=== PATIENT | male | born 1965 | race Two or more races ===

== ENCOUNTER 2025-01-25 14:58 | Inpatient (IN) | payer OTHER ==
[~2025-01-25] VITALS: Ht 177.8 cm; Wt 132.0 kg
--- NOTE | 2025-01-25 15:26 | ECG ---
[facility] Test Date: 2025-01-25 Test Time: 15:01:58 Pat Name: CATIE CAMPOS Department: Room: Gender: M Equine Intern: PAULETTE : 1965 Requested By: ANJEL FIELDS Order Number: [id number] Reading MD: Jesús Parada Measurements Intervals [place] Rate: 91 P: 57 [place]: 182 QRS: 136 QRSD: 101 T: 34 QT: 366 QTc: 451 Interpretive Statements Sinus rhythm Left posterior fascicular block Electronically Signed On 01-25-2025 16:11:42 PDT by Jesús Parada Please click the below link to view image of tracing.
--- NOTE | 2025-01-25 15:27 | ED.PDOC ---
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 Pain is localized at substernal area, radiating to the back, pressure-like, constant, 10/10 in intensity with no clear exacerbating or relieving factor. He went to [facility], but due to chest pain EMS was called and brought to the hospital. In growth the patient was given nitroglycerin and loading dose of aspirin which did not help with the pain. He also reports of headache, nausea, and lethargy. He denies fever, shortness of breaths, or any recent chest trauma. Chief Complaint: Chest Pain Time Seen by MD: 15:00 Allergies: Coded Allergies: NO KNOWN ALLERGIES (Unverified , 01/25/25) Mode of Arrival: EMS Physical Exam General Appearance: No Apparent Distress, Normal HEENT: Normal ENT Inspection, Pharynx Normal, TMs Normal Neck: Full Range of Motion, Non-Tender, Normal, Normal Inspection Respiratory: Chest Non-Tender, Lungs Clear, No Accessory Muscle Use, No Respiratory Distress, Normal Breath Sounds Cardiovascular: No Edema, No JVD, No Murmur, No Gallop, Normal Peripheral Pulses, Regular Rate/Rhythm Breast Exam: Deferred Gastrointestinal: No Organomegaly, Non Tender, No Pulsatile Mass, Normal Bowel Sounds, Soft Genitalia: Deferred Pelvic: Deferred Rectal: Deferred Extremities: No calf tenderness, Normal capillary refill, Normal inspection, Normal range of motion, Non-tender, No pedal edema Musculoskeletal : Apperance: Normal Neurologic: Alert, marine plumber II-XII nml as Tested, No Motor Deficits, Normal Affect, Normal Mood, No Sensory Deficits Cerebellar Function: Normal Reflexes: Normal Skin: Dry, Normal Color, Warm Lymphatic: No Adenopathy Was a procedure done? Was a procedure done?: No CP Differential Dx Differential Diagnosis: Heart Failure Differential Diagnosis: CHF Differential Diagnosis: Angina, Chest Wall Pain, Cholelithiasis, Costochondritis, Esophageal reflux/spasm, Gastritis X-Ray, Labs, Meds, VS Vital Signs Date Time Temp Pulse Resp B/P (MAP) Pulse Ox O2 Delivery O2 Flow Rate FiO2 01/25/25 16:13 89 16 101/72 01/25/25 16:00 89 16 101/72 (82) 96 01/25/25 15:28 91 01/25/25 15:09 98.2 95 18 111/80 95 98.2 Lab Test 01/25/25 16:15 01/25/25 14:59 Range/Units Troponin I High Sensitivity 3 L < 3 L </=54 ng/L White Blood Count 7.8 4.4-10.8 10^3/uL Red Blood Count 5.26 4.5-5.90 10^6/uL Hemoglobin 16.0 13.5-17.5 g/dL Hematocrit 46.8 41.0-53.0 % Mean Corpuscular Volume 89.1 80.0-100.0 fL Mean Corpuscular Hemoglobin 30.5 28.0-32.0 pg Mean Corpuscular Hemoglobin Concent 34.2 32.0-36.0 g/dL Red Cell Distribution Width 14.8 H 11.8-14.3 % Platelet Count 231 140-450 10^3/uL Mean Platelet Volume 8.1 6.9-10.8 fL Neutrophils (%) (Auto) 45.6 37.0-80.0 % Lymphocytes (%) (Auto) 37.0 10.0-50.0 % Monocytes (%) (Auto) 13.0 H 0.0-12.0 % Eosinophils (%) (Auto) 3.5 0.0-7.0 % Basophils (%) (Auto) 0.9 0.0-2.0 % Neutrophils # (Auto) 3.6 1.6-8.6 10 ^3/uL Lymphocytes # (Auto) 2.9 0.4-5.4 10 ^3/uL Monocytes # (Auto) 1.0 0-1.3 10 ^3/uL Eosinophils # (Auto) 0.3 0-0.8 10 ^3/uL Basophils # (Auto) 0.1 0-0.2 10 ^3/uL Nucleated Red Blood Cells 0.1 % D-Dimer, Quantitative < 0.19 0.0-0.49 mg/L FEU Urine Color Pending Urine Clarity Pending Urine pH Pending Urine Specific Center Pending Urine Protein Pending Urine Ketones Pending Urine Blood Pending Urine Nitrite Pending Urine Bilirubin Pending Urine Urobilinogen Pending Urine Leukocyte Esterase Pending Urine RBC Pending Urine Microscopic WBC Pending Urine Squamous Epithelial Cells Pending Urine Bacteria Pending Urine Glucose Pending Sodium Level 136 136-145 mmol/L Potassium Level 3.9 3.5-5.1 mmol/L Chloride Level 99 98-107 mmol/L Carbon Dioxide Level 27 20-31 mmol/L Anion Gap 10 5-15 Blood Urea Nitrogen 16 9-23 mg/dL Creatinine 1.18 0.700-1.30 mg/dL Glomerular Filtration Rate Calc 72 >90 mL/min BUN/Creatinine Ratio 13.6 10.0-20.0 Serum Glucose 428 *H 74-106 mg/dL Calcium Level 9.1 8.7-10.4 mg/dL Magnesium Level 2.2 1.6-2.6 mg/dL Total Bilirubin 0.8 0.2-1.0 mg/dL Aspartate Amino Transferase (AST) 27 13-40 U/L Alanine Aminotransferase (ALT) 61 H 7-40 U/L Alkaline Phosphatase 149 H 46-116 U/L Total Protein 7.4 5.7-8.2 g/dL Albumin 4.3 3.2-4.8 g/dL Current Medications Medications (Trade) Dose Ordered Sig/Chrissy Route Start Time Stop Time Status Last Admin Morphine Sulfate 4 mg ONCE ONCE IV 01/25/25 15:15 01/25/25 15:26 DC 01/25/25 16:13 Atorvastatin Calcium (Lipitor) 80 mg ONCE ONCE PO 01/25/25 15:15 01/25/25 15:26 DC 01/25/25 16:12 Insulin Glargine (Lantus) 20 units ONCE ONCE SC 01/25/25 15:15 01/25/25 15:26 DC 01/25/25 16:11 Insulin Human Lispro (HumaLOG) 20 units ONCE ONCE SC 01/25/25 15:15 01/25/25 15:26 DC 01/25/25 16:10 Ondansetron HCl (Zofran) 4 mg ONCE ONCE IV 01/25/25 15:15 01/25/25 15:26 DC 01/25/25 16:12 Pantoprazole Sodium (Protonix) 40 mg ONCE ONCE IV 01/25/25 15:15 01/25/25 15:26 DC 01/25/25 16:13 Time of 1ST Reevaluation: 16:56 Reevaluation 1ST: Unchanged Patient Education/Counseling: Diagnosis, Treatment, Prognosis, Need For Follow Up Family Education/Counseling: No Family Present Comments Patient came to the hospital due to chest pain. Patient was vitally stable. Chest x-ray performed, showed no significant intrathoracic abnormalities. CBC and CMP checked, within normal Serial trop I was within normal. EKGs check, showed normal sinus rhythm with no significant ST or T-wave changes. The patient was given morphine, aspirin, atorvastatin and Zofran. on subsequent checkup, patient was still complaining of chest pain Patient will be admitted in hospital for inpatient care and for the workup and possible expert opinion. SEPSIS Sepsis Screen Date sepsis recognized/suspect: Jan 25, 2025 Time Sepsis recognized/suspect: 1457 Recent Procedure: No On Antibiotic Therapy: No Respiratory Rate >20: No Heart Rate >90: No Temp<36 C (96.8 F) or >38.3 C: No SBP <90 or MAP <65 mmHG: No New Acute Mental Status Change: No Is the patient on CPAP, BIPAP,: No Physician Orders Urinalysis (01/25/25 15:04) Electrocardigram (01/25/25 15:07) Troponin-I Hs (01/25/25 16:07) Troponin-I Hs (01/25/25 18:07) Electrocardigram (01/25/25 16:07) Electrocardigram (01/25/25 18:07) Drug Screen (01/25/25 15:04) Chest Xray 1 View (01/25/25 15:04) Vital Signs Date Time Temp Pulse Resp B/P (MAP) Pulse Ox O2 Delivery O2 Flow Rate FiO2 01/25/25 16:13 89 16 101/72 01/25/25 16:00 89 16 101/72 (82) 96 01/25/25 15:28 91 01/25/25 15:09 98.2 95 18 111/80 95 98.2 Laboratory Tests Test 01/25/25 14:59 White Blood Count 7.8 10^3/uL (4.4-10.8) Medications Medications Dose Ordered Sig/Chrissy Route Start Time Stop Time Status Last Admin Dose Admin Atorvastatin Calcium 80 mg ONCE ONCE PO 01/25/25 15:15 01/25/25 15:26 DC 01/25/25 16:12 Insulin Glargine 20 units ONCE ONCE SC 01/25/25 15:15 01/25/25 15:26 DC 01/25/25 16:11 Insulin Human Lispro 20 units ONCE ONCE SC 01/25/25 15:15 01/25/25 15:26 DC 01/25/25 16:10 Morphine Sulfate 4 mg ONCE ONCE IV 01/25/25 15:15 01/25/25 15:26 DC 01/25/25 16:13 Ondansetron HCl 4 mg ONCE ONCE IV 01/25/25 15:15 01/25/25 15:26 DC 01/25/25 16:12 Pantoprazole Sodium 40 mg ONCE ONCE IV 01/25/25 15:15 01/25/25 15:26 DC 01/25/25 16:13 Departure 1 Departure Time of Disposition: 16:58 Impression: Primary Impression: Angina pectoris Additional Impression: Chest pain Disposition: 09 ADMITTED INPATIENT Admit to: [facility] Condition: Guarded Critical Care Note Critical Care Time?: No Stability Stability form required: No Heart Score Heart Score: Heart Score Response (Comments) Value History Moderate Suspicious 1 EKG Normal 0 Age 45-64 1 Risk Factors >3 or Hx ASHD 2 Troponin Normal limit 0 Total 4 ANJEL FIELDS RESDIENT Jan 25, 2025 15:27
[2025-01-25 15:42] LABS: Hematocrit 46.8 % (41.0-53.0); Hemoglobin 16.0 g/dL (13.5-17.5); Mean Corpuscular Hemoglobin 30.5 pg (28.0-32.0); Mean Corpuscular Volume 89.1 fL (80.0-100.0); Nucleated Red Blood Cells % 0.1 %
--- NOTE | 2025-01-25 15:46 | DVH ---
CHEST RADIOGRAPH REASON FOR EXAM: chest pain COMPARISON: None TECHNIQUE: One view of the chest is provided FINDINGS: The cardiomediastinal silhouette is within normal limits for technique. There is no focal a irspace disease. There is no significant pleural effusion. No acute bony abnormality is identified. IMPRESSION: No radiographic evidence of acute cardiopulmonary process.
[2025-01-25 16:07] LABS: Albumin 4.3 g/dL (3.2-4.8); Bilirubin, Total 0.8 mg/dL (0.2-1.0); Calcium 9.1 mg/dL (8.7-10.4); Chloride 99 mmol/L (98-107); Magnesium 2.2 mg/dL (1.6-2.6); Potassium 3.9 mmol/L (3.5-5.1); Sodium 136 mmol/L (136-145); Total Protein 7.4 g/dL (5.7-8.2)
[2025-01-25 16:08] LABS: Alanine Aminotransferase 61 U/L (7-40); Alkaline Phosphatase 149 U/L (46-116)
[2025-01-25] MEDS: NITROGLYCERIN 0.4 MG SL TAB SL ONE (16:08)
[2025-01-25 16:10] LABS: Glucose 428 mg/dL (74-106)
[2025-01-25] MEDS: INSULIN LISPRO (HUMAN) 100 UNITS/ML ML SC ONE (16:10)
[2025-01-25 16:11] LABS: Anion Gap 10 (5-15); BUN/Creatinine Ratio 13.6 (10.0-20.0); Blood Urea Nitrogen 16 mg/dL (9-23); Carbon Dioxide 27 mmol/L (20-31)
[2025-01-25] MEDS: INSULIN LANTUS (GLARGINE) 1 /0.01ml (100units/ml) SC ONE (16:11)
[2025-01-25] MEDS: ATORVASTATIN 20 MG TAB PO ONE (16:12)
[2025-01-25] MEDS: ONDANSETRON HCL 4 MG/2 ML VIAL IV ONE ×2 (16:12→17:01)
[2025-01-25] MEDS: MORPHINE SULFATE 4 MG/ML SYR/VIAL IV ONE ×2 (16:13→17:01)
[2025-01-25] MEDS: PANTOPRAZOLE 40 MG/10 ML VIAL INJ IV ONE (16:13)
[2025-01-25] MEDS ORDERED: NITROGLYCERIN 0.4 MG SL TAB SL PRN (19:45)
[2025-01-25] MEDS ORDERED: DEXTROSE (50%) 50ML SYRG IV PRN (19:45)
--- NOTE | 2025-01-25 23:52 | DVHHP2 ---
History of Present Illness Reason for Visit: Chest pain History of Present Illness 59-year-old male presents for evaluation of chest pain. Patient endorses a one day history of substernal pressure-like chest pain that radiates to his back with associated shortness for breath. Denies cough or fever. Currently rates the pain at 7/10 intensity. No other acute complaints reported. Past Medical History Hypertension, dyslipidemia, diabetes mellitus, pulmonary embolism Past Surgical History Cholecystectomy Family History Noncontributory Smoke: No ALCOHOL: none Drugs: None Lives: with Family Review of Systems Review of Systems Review of systems are currently negative otherwise addressed in HPI. Allergies: Coded Allergies: NO KNOWN ALLERGIES (Unverified , 01/25/25) Medications Current Medications Medications Dose Ordered Sig/Chrissy Route Start Time Stop Time Status Last Admin Dose Admin Aspirin 81 mg DAILY PO 01/26/25 10:00 Furosemide 20 mg DAILY PO 01/26/25 10:00 Gabapentin 600 mg TID PO 01/25/25 22:00 Atorvastatin Calcium 80 mg HS PO 01/25/25 22:00 Carvedilol 25 mg Q12HR PO 01/25/25 22:00 Diagnostic Test (Pha) 1 strip ACHS 01/25/25 22:00 Insulin Human Regular ACHS SC 01/25/25 22:00 Dextrose 50 ml UD PRN IV 01/25/25 19:45 Ondansetron HCl 4 mg Q4HP PRN IV 01/25/25 19:45 Nitroglycerin 0.4 mg Q5MINP PRN SL 01/25/25 19:45 Morphine Sulfate 2 mg Q30M PRN IV 01/25/25 19:45 Exam Vital Signs Vital Signs Date Time Temp Pulse Resp B/P (MAP) Pulse Ox O2 Delivery O2 Flow Rate FiO2 01/25/25 20:55 98.3 95 12 119/89 (99) 94 98.3 Exam Gen: 59-year-old male in mild distress, morbidly obese Skin: Warm, dry, normal color and texture, no rash. HEENT: Normocephalic atraumatic, mucous membranes moist and pink. Neck: Cervical and supraclavicular nodes normal without enlargement, trachea is midline, thyroid gland is normal without masses. Pulmonary: Clear to auscultation and percussion bilaterally. Cardiac: Regular rate and rhythm. No murmur Abdomen: Soft, nontender, nondistended, bowel sounds present all 4 quadrants, no guarding, no rigidity, no organomegaly. Extremities: No cyanosis, clubbing, no edema Neuro: Cranial nerves II through XII grossly intact, normal affect and speech, no focal motor deficits. Labs/Xrays ORDERING PHYSICIAN: ANJEL FIELDS PROCEDURE(s): CXR1 - CHEST XRAY 1 VIEW REASON: chest pain ORDER NUMBER(s): [id number], ACCESSION NUMBER(s): [id number] CHEST RADIOGRAPH REASON FOR EXAM: chest pain COMPARISON: None TECHNIQUE: One view of the chest is provided FINDINGS: The cardiomediastinal silhouette is within normal limits for technique. There is no focal airspace disease. There is no significant pleural effusion. No acute bony abnormality is identified. IMPRESSION: No radiographic evidence of acute cardiopulmonary process. Labs Test 01/25/25 20:38 01/25/25 18:22 01/25/25 14:59 Range/Units POC Glucose 289 H 70-106 mg/dl Troponin I High Sensitivity 3 L </=54 ng/L White Blood Count 7.8 4.4-10.8 10^3/uL Red Blood Count 5.26 4.5-5.90 10^6/uL Hemoglobin 16.0 13.5-17.5 g/dL Hematocrit 46.8 41.0-53.0 % Mean Corpuscular Volume 89.1 80.0-100.0 fL Mean Corpuscular Hemoglobin 30.5 28.0-32.0 pg Mean Corpuscular Hemoglobin Concent 34.2 32.0-36.0 g/dL Red Cell Distribution Width 14.8 H 11.8-14.3 % Platelet Count 231 140-450 10^3/uL Mean Platelet Volume 8.1 6.9-10.8 fL Neutrophils (%) (Auto) 45.6 37.0-80.0 % Lymphocytes (%) (Auto) 37.0 10.0-50.0 % Monocytes (%) (Auto) 13.0 H 0.0-12.0 % Eosinophils (%) (Auto) 3.5 0.0-7.0 % Basophils (%) (Auto) 0.9 0.0-2.0 % Neutrophils # (Auto) 3.6 1.6-8.6 10 ^3/uL Lymphocytes # (Auto) 2.9 0.4-5.4 10 ^3/uL Monocytes # (Auto) 1.0 0-1.3 10 ^3/uL Eosinophils # (Auto) 0.3 0-0.8 10 ^3/uL Basophils # (Auto) 0.1 0-0.2 10 ^3/uL Nucleated Red Blood Cells 0.1 % D-Dimer, Quantitative < 0.19 0.0-0.49 mg/L FEU Urine RBC 0 - 3 /hpf Urine Squamous Epithelial Cells <5 /hpf Urine Bacteria None Seen /hpf Sodium Level 136 136-145 mmol/L Potassium Level 3.9 3.5-5.1 mmol/L Chloride Level 99 98-107 mmol/L Carbon Dioxide Level 27 20-31 mmol/L Anion Gap 10 5-15 Blood Urea Nitrogen 16 9-23 mg/dL Creatinine 1.18 0.700-1.30 mg/dL Glomerular Filtration Rate Calc 72 >90 mL/min BUN/Creatinine Ratio 13.6 10.0-20.0 Serum Glucose 428 *H 74-106 mg/dL Calcium Level 9.1 8.7-10.4 mg/dL Magnesium Level 2.2 1.6-2.6 mg/dL Total Bilirubin 0.8 0.2-1.0 mg/dL Aspartate Amino Transferase (AST) 27 13-40 U/L Alanine Aminotransferase (ALT) 61 H 7-40 U/L Alkaline Phosphatase 149 H 46-116 U/L Total Protein 7.4 5.7-8.2 g/dL Albumin 4.3 3.2-4.8 g/dL SEPSIS Sepsis Screen Date sepsis recognized/suspect: Jan 25, 2025 Time Sepsis recognized/suspect: 8 Recent Procedure: No On Antibiotic Therapy: No Respiratory Rate >20: No Heart Rate >90: No Temp<36 C (96.8 F) or >38.3 C: No SBP <90 or MAP <65 mmHG: No New Acute Mental Status Change: No Is the patient on CPAP, BIPAP,: No Physician Orders Aspirin Tablet (01/26/25 10:00) Furosemide Tablet (Lasix Tablet) (01/26/25 10:00) Gabapentin Capsule (Neurontin Capsule) (01/25/25 22:00) Atorvastatin (Lipitor) (01/25/25 22:00) Carvedilol Tablet (Coreg Tablet) (01/25/25 22:00) Basic Metabolic Panel (01/26/25 04:00) Glucose Blood (Accu-Chek Comfort Curve T (01/25/25 22:00) Insulin R (Human) (Insulin R) (01/25/25 22:00) Dextrose 50% Syringe (01/25/25 19:45) Admit (01/25/25 19:33) Ondansetron Hcl (Zofran) (01/25/25 19:45) Cardiac Diet-2gna,Lofat,Lochol (01/26/25 Breakfast) Echo 2d Mode Cardiac Dop (01/25/25 19:33) Condition: Fair (01/25/25 19:33) Bedrest With Bathroom Privileg (01/25/25 19:33) Nitroglycerin Sublingual (Ntrostat Subli (01/25/25 19:45) Morphine Sulfate Injection (01/25/25 19:45) Stat Ekg For Chest Pain (01/25/25 19:33) Notify Md Of Changes From Base (01/25/25 19:33) Commodity Management Specialist For 24 Hours (01/25/25 19:33) Emergency Dysrhythmia Protocol (01/25/25 19:33) Rhythm Strips Once Every Shift (01/25/25 19:33) Oxygen By Nasal Cannula (01/25/25 19:33) Vital Signs Date Time Temp Pulse Resp B/P (MAP) Pulse Ox O2 Delivery O2 Flow Rate FiO2 01/25/25 20:55 98.3 95 12 119/89 (99) 94 98.3 01/25/25 19:24 94 01/25/25 17:01 89 16 140/92 01/25/25 16:13 89 16 101/72 01/25/25 16:00 89 16 101/72 (82) 96 Laboratory Tests Test 01/25/25 14:59 White Blood Count 7.8 10^3/uL (4.4-10.8) Medications Medications Dose Ordered Sig/Chrissy Route Start Time Stop Time Status Last Admin Dose Admin Atorvastatin Calcium 80 mg ONCE ONCE PO 01/25/25 15:15 01/25/25 15:26 DC 01/25/25 16:12 80 MG Insulin Glargine 20 units ONCE ONCE SC 01/25/25 15:15 01/25/25 15:26 DC 01/25/25 16:11 20 UNITS Insulin Human Lispro 20 units ONCE ONCE SC 01/25/25 15:15 01/25/25 15:26 DC 01/25/25 16:10 20 UNITS Morphine Sulfate 4 mg ONCE ONCE IV 01/25/25 15:15 01/25/25 15:26 DC 01/25/25 16:13 4 MG Morphine Sulfate 4 mg ONCE ONCE IV 01/25/25 16:45 01/25/25 16:46 DC 01/25/25 17:01 4 MG Ondansetron HCl 4 mg ONCE ONCE IV 01/25/25 15:15 01/25/25 15:26 DC 01/25/25 16:12 4 MG Ondansetron HCl 4 mg ONCE ONCE IV 01/25/25 16:45 01/25/25 16:46 DC 01/25/25 17:01 4 MG Pantoprazole Sodium 40 mg ONCE ONCE IV 01/25/25 15:15 01/25/25 15:26 DC 01/25/25 16:13 40 MG Assessment/Plan Assessment/Plan Assessment Chest pain rule out ACS Uncontrolled diabetes mellitus Hypertension Morbid obesity Plan Admit the patient to telemetry to the hospitalist ACS protocol Resume home medications Continue treatment per orders. Plan discussed with: Patient My Orders Orders - MARIYA IGLESIAS AGACNBeka Procedure Category Date Status Time Aspirin Tablet PHA 01/26/25 In Process 10:00 Furosemide Tablet PHA 01/26/25 In Process (Lasix Tablet) 10:00 Gabapentin Capsule PHA 01/25/25 In Process (Neurontin Capsule) 22:00 Atorvastatin (Lipitor) PHA 01/25/25 In Process 22:00 Carvedilol Tablet PHA 01/25/25 In Process (Coreg Tablet) 22:00 Basic Metabolic Panel LAB 01/26/25 Verified 04:00 Glucose Blood PHA 01/25/25 In Process (Accu-Chek Comfort 22:00 Insulin R (Human) PHA 01/25/25 In Process (Insulin R) 22:00 Dextrose 50% Syringe PHA 01/25/25 In Process 19:45 Admit ADMIT 01/25/25 Transmitted 19:33 Ondansetron Hcl PHA 01/25/25 In Process (Zofran) 19:45 Cardiac DIET 01/26/25 Transmitted Diet-2gna,Lofat,Lochol Breakfast Echo 2d Mode Cardiac US 01/25/25 Logged DOP 19:33 Condition: Fair [place] 01/25/25 In Process 19:33 Bedrest With Bathroom [facility] 01/25/25 In Process Privileg 19:33 Nitroglycerin [facility] 01/25/25 In Process Sublingual (Ntrostat 19:45 Morphine Sulfate PHA 01/25/25 In Process Injection 19:45 Stat Ekg For Chest [facility] 01/25/25 In Process Pain 19:33 Notify Md Of Changes [facility] 01/25/25 In Process From Base 19:33 Commodity Management Specialist For [facility] 01/25/25 In Process 24 Hours 19:33 Emergency Dysrhythmia [facility] 01/25/25 In Process Protocol 19:33 Rhythm Strips Once [facility] 01/25/25 In Process Every Shift 19:33 Oxygen By Nasal RT 01/25/25 Transmitted Cannula 19:33 Date of Service: Jan 25, 2025 Billing Provider: MARIYA IGLESIAS Common Visit Codes: [id number] INP/OBS CARE (HIGH) MARIYA IGLESIAS Jan 25, 2025 23:52
[2025-01-26] VITALS (8 sets, daily range): BP systolic 110–154; BP diastolic 73–101; PULSE 80–88; RESP 15–20; TEMP 97.5–98.6; O2SAT 94–97
[2025-01-26] MEDS: CARVEDILOL 12.5 MG TAB PO SCH (00:13)
[2025-01-26] MEDS: GABAPENTIN 300 MG CAP PO SCH (00:13)
[2025-01-26] MEDS: ATORVASTATIN 20 MG TAB PO SCH (00:15)
[2025-01-26] MEDS: ONDANSETRON HCL 4 MG/2 ML VIAL IV PRN (00:15)
[2025-01-26] MEDS: MORPHINE SULFATE INJ 2 MG/ml SYRG IV PRN ×2 (00:16→13:37)
--- NOTE | 2025-01-26 00:19 | ECG ---
[facility] Test Date: 2025-01-25 Test Time: 19:24:57 Pat Name: CATIE CAMPOS Department: [facility] ED Room: [address] [place] [address] Gender: M House Decorator: MICHELE : 1965 Requested By: ANJEL FIELDS Order Number: [id number] Reading MD: Measurements Intervals [place] Rate: 94 P: 52 [place]: 185 QRS: 83 QRSD: 105 T: 35 QT: 372 QTc: 466 Interpretive Statements Sinus rhythm Abnormal R-wave progression, late transition Please click the below link to view image of tracing.
[2025-01-26] MEDS: ACCU-CHEK COMFORT CURVE STRIP VI SCH ×2 (00:27→16:06)
[2025-01-26] MEDS: InsuLIN REG 1unit/0.01ml Soln (100units/ml) SC SCH ×2 (00:29→13:43)
[2025-01-26 05:24] LABS: Anion Gap 8 (5-15); Carbon Dioxide 29 mmol/L (20-31); Potassium 3.5 mmol/L (3.5-5.1)
[2025-01-26 05:25] LABS: Calcium 8.9 mg/dL (8.7-10.4)
[2025-01-26 05:29] LABS: Chloride 97 mmol/L (98-107); Sodium 134 mmol/L (136-145)
[2025-01-26 05:30] LABS: BUN/Creatinine Ratio 14.2 (10.0-20.0); Blood Urea Nitrogen 16 mg/dL (9-23)
[2025-01-26 05:34] LABS: Glucose 470 mg/dL (74-106)
[2025-01-26] MEDS: FUROSEMIDE 20 MG TAB PO SCH (08:39)
[2025-01-26] MEDS ORDERED: SEMA7TAB2 PO (12:13)
[2025-01-26] MEDS ORDERED: FURO1TAB33 PO (12:13)
[2025-01-26] MEDS ORDERED: TIOT1AER IN (12:13)
[2025-01-26] MEDS ORDERED: METF-372 PO (12:13)
[2025-01-26] MEDS ORDERED: LORA-622 PO (12:13)
[2025-01-26] MEDS ORDERED: ATOR-507 PO (12:13)
[2025-01-26] MEDS ORDERED: LOSA25TA5 PO (12:13)
[2025-01-26] MEDS ORDERED: CARV-217 PO (12:13)
[2025-01-26] MEDS ORDERED: FLUT1SPR5 (12:13)
[2025-01-26] MEDS ORDERED: POM PO (12:13)
[2025-01-26] MEDS ORDERED: DEXTROSE (50%) 50ML SYRG IV PRN ×2 (13:00→22:15)
--- NOTE | 2025-01-26 13:02 | DVHSR ---
APPROVED REPORT EXAM: Two-dimensional and M-mode echocardiogram with Doppler and color Doppler. Blood Pressure: 119/77 mmHg INDICATION Chest Pain RISK FACTORS Height: 70, Weight: 269 DIMENSIONS LVDd4.5 (3.8-5.7cm)LA (2D)3.8 (1.9-4.0cm)Aortic Root3.6 (2.0-3.7cm) LVDs3.0 (2.5-4.0cm)LA (MM) (1.9-4.0cm)Aortic Cusp Exc2.0 (1.5-2.0cm) EF (%) 63.0 (55-70%)Rt. Atrium4.0 (1.9-4.0cm)Asc. Aorta cm IVSd1.3 (0.7-1.1cm)RV (D) (1.8-2.4cm) PWd1.4 (0.7-1.1cm) Mitral Valve MitralMitral Stenosis E wave0.95m/sMV Mean GR.mmHg A wave1.00m/sMV Peak GR.mmHg E/A ratio0.92D MVAcm2 DECEL [id number] 1/2 [id number] IVRTmsDop MVA3.29cm2 Aortic Valve Aortic ValveAortic Stenosis V11.10m/Mario Mean GR.6mmHg V21.59m/Mario Peak GR.10mmHg LVOT Diameter2.1 (1.8-2.4cm)Doppler AVA2.39cm2 Pulmonic Valve V20.89m/s Other Information Technically limited study due to body habitus. Conclusion lvef 55% grade 1 diastolic dysfunction normal rv function left atrium enlarged no severe valve abnormalities noted
[2025-01-26 15:18] LABS: COVID19 ANTIGEN SOFIA FIA NEGATIVE (NEGATIVE)
[2025-01-26] MEDS: INSULIN LANTUS (GLARGINE) 1 /0.01ml (100units/ml) SC SCH (15:45)
[2025-01-26] MEDS ORDERED: ACCU-CHEK COMFORT CURVE STRIP VI SCH (16:00)
[2025-01-26] MEDS: KETOROLAC TROMETH 30 MG/ML 1ML VIAL IV ONE (16:53)
[2025-01-26] MEDS: SODIUM CHLORIDE 0.9% 1,000 ML IV ONE (16:53)
--- NOTE | 2025-01-26 17:15 | DVHPN2 ---
Subjective Patient continues to have generalized body aches. Reviewed: Care Plan, H&P, Labs, Medications Changes from previous H/P or p: No Changes General: Per HPI Objective Vitals Vital Signs Date Time Temp Pulse Resp B/P (MAP) Pulse Ox O2 Delivery O2 Flow Rate FiO2 01/26/25 16:52 98.6 81 18 110/73 (85) 96 98.6 01/26/25 03:19 Room Air 01/26/25 03:00 0 21 21 General Appearance: Alert, Oriented X3, Cooperative, mild distress HEENT: Atraumatic, PERRLA Lungs: Clear to auscultation, Normal air movement Cardiovascular: Normal S1, Normal S2 Abdomen: Normal bowel sounds, Soft, No tenderness, No hepatospenomegaly, No masses Musculoskeletal: Normal sensory function, Normal motor function Skin: Dry, Intact Psych/Mental Status: Mental status NL, Mood NL Medications Current Medications Medications Dose Ordered Sig/Chrissy Route Start Time Stop Time Status Last Admin Dose Admin Aspirin 81 mg DAILY PO 01/26/25 10:00 01/26/25 08:38 81 MG Furosemide 20 mg DAILY PO 01/26/25 10:00 01/26/25 08:39 20 MG Gabapentin 600 mg TID PO 01/25/25 22:00 01/26/25 14:26 600 MG Atorvastatin Calcium 80 mg HS PO 01/25/25 22:00 01/26/25 00:15 80 MG Carvedilol 25 mg Q12HR PO 01/25/25 22:00 01/26/25 11:09 25 MG Ondansetron HCl 4 mg Q4HP PRN IV 01/25/25 19:45 01/26/25 00:15 4 MG Nitroglycerin 0.4 mg Q5MINP PRN SL 01/25/25 19:45 Morphine Sulfate 2 mg Q30M PRN IV 01/25/25 19:45 01/26/25 08:38 2 MG Diagnostic Test (Pha) 1 strip Q4HR 01/26/25 16:00 Cancel Morphine Sulfate 2 mg Q4HPRN PRN IV 01/26/25 13:00 01/26/25 13:37 2 MG Diagnostic Test (Pha) 1 strip IQ4HR 01/26/25 16:00 01/26/25 16:06 1 STRIP Insulin Human Regular IQ4HR SC 01/26/25 12:00 01/26/25 16:07 20 UNITS Dextrose 50 ml UD PRN IV 01/26/25 13:00 Insulin Glargine 30 units HS SC 01/26/25 15:45 Pantoprazole Sodium 40 mg DAILY@0600 PO 01/27/25 06:00 Laboratory Results Laboratory Tests 01/25/25 14:59 01/26/25 04:51 Chemistry Test 01/26/25 04:51 Calcium Level 8.9 mg/dL (8.7-10.4) Lipid panel Test 01/26/25 04:51 Cholesterol Level Pending HDL Cholesterol Pending Triglycerides Level Pending HgA1c, TSH Test 01/26/25 04:51 Hemoglobin A1c Pending Urinalysis Test 01/25/25 14:59 Urine Color Pending Urine Clarity Pending Urine pH Pending Urine Specific [place] Pending Urine Protein Pending Urine Ketones Pending Urine Blood Pending Urine Nitrite Pending Urine Bilirubin Pending Urine Urobilinogen Pending Urine Leukocyte Esterase Pending Urine RBC /hpf (0 - 3) Urine Microscopic WBC Pending Urine Squamous Epithelial Cells /hpf (<5) Urine Bacteria /hpf (None Seen) Urine Glucose Pending Labs and/or images reviewed: Labs reviewed by me, Image(s) reviewed by me Assessment/Plan Assessment/Plan Impression: -uncontrolled diabetes mellitus -chest pain, ACS ruled out -morbid obesity -primary hypertension Plan: -echocardiogram within normal limits -troponin negative x3 -continue regular insulin sliding scale, aggressive with q.4 coverage -start Lantus -check A1c, ESR, CRP -reassess for discharge in a.m. Total time spent with patient discussing and formulating plan of care: 35 minutes. This medical document was created using an electronic medical record system with [employer] dictation system. Although this document has been carefully reviewed, there may still be some phonetic and typographical errors. These areas are purely typographical due to imperfections of the software programs, and do not reflect any compromise in the patient's medical care. Plan discussed with: Patient, Other (RN) My Orders Orders - JERMAN SILVA [employer] Procedure Category Date Status Time Morphine Sulfate PHA 01/26/25 In Process Injection 13:00 Glucose Blood PHA 01/26/25 In Process (Accu-Chek Comfort 16:00 Insulin R (Human) PHA 01/26/25 In Process (Insulin R) 12:00 Dextrose 50% Syringe PHA 01/26/25 In Process 13:00 Hemoglobin A1c LAB 01/26/25 In Process 15:44 Insulin Lantus PHA 01/26/25 In Process (Glargine) (Lantus) 15:45 Sodium Chloride 0.9% PHA 01/26/25 In Process 15:45 Erythrocyte LAB 01/26/25 In Process Sedimentation Rate 15:50 C-Reactive Protein LAB 01/26/25 In Process 15:50 Lipid Panel LAB 01/26/25 In Process 15:50 Pantoprazole Tablet PHA 01/27/25 In Process (Protonix Tablet) 06:00 Date of Service: Jan 26, 2025 Billing Provider: JERMAN SILVA NP Common Visit Codes: [id number] INP/OBS CARE(HIGH) JERMAN SILVA NP Jan 26, 2025 17:15
[2025-01-26 18:01] LABS: Cholesterol 121.0 mg/dL (< 200)
[2025-01-26 18:16] LABS: Triglycerides 370.0 mg/dL (< 150)
[2025-01-26 18:38] LABS: HDL Cholesterol 27.0 mg/dL (40-59)
[2025-01-27] VITALS (8 sets, daily range): BP systolic 111–134; BP diastolic 75–99; PULSE 67–83; RESP 17–19; TEMP 97.6–99.1; O2SAT 91–97
[2025-01-27] MEDS: ACCU-CHEK COMFORT CURVE STRIP VI SCH
[2025-01-27] MEDS: InsuLIN REG 1unit/0.01ml Soln (100units/ml) SC SCH (00:26)
[2025-01-27] MEDS: PANTOPRAZOLE 40 MG TAB PO SCH (05:18)
--- NOTE | 2025-01-27 10:43 | DVHPN2 ---
Subjective Patient continues to have generalized body aches. Continues to report having some chest pressure. Reviewed: Care Plan, H&P, Labs, Medications Changes from previous H/P or p: No Changes General: Per HPI Objective Vitals Vital Signs Date Time Temp Pulse Resp B/P (MAP) Pulse Ox O2 Delivery O2 Flow Rate FiO2 01/27/25 09:52 97.8 78 18 134/99 (111) 95 97.8 01/27/25 08:00 Room Air* 0 21 Intake/Output Intake and Output 01/27/25 07:00 Intake Total 2110 ml Output Total 850 ml Balance 1260 ml Intake Oral 1910 ml IV Total 200 ml Output Urine Total 850 ml # Voids 3 # Bowel Movements 1 General Appearance: Alert, Oriented X3, Cooperative, mild distress HEENT: Atraumatic, PERRLA Lungs: Clear to auscultation, Normal air movement Cardiovascular: Normal S1, Normal S2 Abdomen: Normal bowel sounds, Soft, No tenderness, No hepatospenomegaly, No masses Musculoskeletal: Normal sensory function, Normal motor function Skin: Dry, Intact Psych/Mental Status: Mental status NL, Mood NL Medications Current Medications Medications Dose Ordered Sig/Chrissy Route Start Time Stop Time Status Last Admin Dose Admin Aspirin 81 mg DAILY PO 01/26/25 10:00 01/27/25 09:22 81 MG Furosemide 20 mg DAILY PO 01/26/25 10:00 01/27/25 09:21 20 MG Gabapentin 600 mg TID PO 01/25/25 22:00 01/27/25 05:18 600 MG Atorvastatin Calcium 80 mg HS PO 01/25/25 22:00 01/26/25 21:34 80 MG Carvedilol 25 mg Q12HR PO 01/25/25 22:00 01/27/25 09:22 25 MG Ondansetron HCl 4 mg Q4HP PRN IV 01/25/25 19:45 01/26/25 00:15 4 MG Nitroglycerin 0.4 mg Q5MINP PRN SL 01/25/25 19:45 Morphine Sulfate 2 mg Q30M PRN IV 01/25/25 19:45 01/27/25 03:12 2 MG Diagnostic Test (Pha) 1 strip Q4HR 01/26/25 16:00 Cancel Morphine Sulfate 2 mg Q4HPRN PRN IV 01/26/25 13:00 01/27/25 07:59 2 MG Dextrose 50 ml UD PRN IV 01/26/25 13:00 Insulin Glargine 30 units HS SC 01/26/25 15:45 01/26/25 21:36 30 UNITS Pantoprazole Sodium 40 mg DAILY@0600 PO 01/27/25 06:00 01/27/25 05:18 40 MG Diagnostic Test (Pha) 1 strip IQ4HR 01/27/25 00:00 01/27/25 08:09 1 STRIP Insulin Human Regular IQ4HR [place] 01/27/25 00:00 01/27/25 08:09 15 UNITS Dextrose 50 ml UD PRN IV 01/26/25 22:15 Insulin Glargine 20 units DAILY@1000 SC 01/27/25 10:45 UNV Laboratory Results Laboratory Tests 01/25/25 14:59 01/26/25 04:51 Urinalysis Test 01/25/25 14:59 Urine Color Pending Urine Clarity Pending Urine pH Pending Urine Specific [place] Pending Urine Protein Pending Urine Ketones Pending Urine Blood Pending Urine Nitrite Pending Urine Bilirubin Pending Urine Urobilinogen Pending Urine Leukocyte Esterase Pending Urine RBC /hpf (0 - 3) Urine Microscopic WBC Pending Urine Squamous Epithelial Cells /hpf (<5) Urine Bacteria /hpf (None Seen) Urine Glucose Pending Labs and/or images reviewed: Labs reviewed by me, Image(s) reviewed by me Assessment/Plan Assessment/Plan Impression: -uncontrolled diabetes mellitus -chest pain, ACS ruled out -morbid obesity -primary hypertension -dyslipidemia Plan: Events: Patient has persistently elevated blood sugars. Hemoglobin A1c was found to be greater than 14. Patient also continues to report having chest pressure. -while there are no ST-T changes, normal troponins, patient's heart score is 4.. Cardiology consultation will be placed -echocardiogram within normal limits -troponin negative x3 -continue regular insulin sliding scale, aggressive with q.4 coverage -continue Lantus 30 units q.h.s., add 20 units daily. -further course of care per Cardiology recommendations. Total time spent with patient discussing and formulating plan of care: 35 minutes. This medical document was created using an electronic medical record system with [employer] dictation system. Although this document has been carefully reviewed, there may still be some phonetic and typographical errors. These areas are purely typographical due to imperfections of the software programs, and do not reflect any compromise in the patient's medical care. Plan discussed with: Patient, Other (RN) My Orders Orders - JERMAN SILVA NP Procedure Category Date Status Time Morphine Sulfate PHA 01/26/25 In Process Injection 13:00 Dextrose 50% Syringe PHA 01/26/25 In Process 13:00 Insulin Lantus PHA 01/26/25 In Process (Glargine) (Lantus) 15:45 Pantoprazole Tablet PHA 01/27/25 In Process (Protonix Tablet) 06:00 Insulin Lantus PHA 01/27/25 Logged (Glargine) (Lantus) 10:45 * Cardiology Consult CONS 01/27/25 Verified 10:37 Date of Service: Jan 27, 2025 Billing Provider: JERMAN SILVA NP Common Visit Codes: [id number] INP/OBS CARE(HIGH) JERMAN SILVA NP Jan 27, 2025 10:43
[2025-01-27] MEDS: INSULIN LANTUS (GLARGINE) 1 /0.01ml (100units/ml) SC SCH (10:55)
--- NOTE | 2025-01-27 11:38 | DVHINCON2 ---
Date Seen: Jan 27, 2025 Referring Physician ALEENA Gutierrez Reason for Consultation Chest pain History of Present Illness This is a 59-year-old man who presented to the emergency room via EMS with a chief complaint of chest pain for three days. He was medicated with NTG SL and ASA p.o. en route to the hospital with no relief of symptoms. Describes his chest pain as retrosternal, pressure-like, intermittent, and associated with mild shortness of breath, headache, and dysarthria. He underwent a 12 lead electrocardiogram revealing a sinus rhythm with no evidence of ST-T wave segment changes. Serial troponin levels are negative. D-dimer level is negative. Significant medical history includes hypertension, dyslipidemia, insulin- dependent diabetes mellitus, pancreatitis, history of PE x3 secondary to protein S deficiency and off DOAC therapy given history of GI bleed, peripheral neuropathy, psoriatic arthritis, obstructive sleep apnea on O2 via NC HS, degenerative disc disease, and morbid obesity. Past Medical History Past medical history reviewed. No other significant than mentioned above. Past Surgical History Cholecystectomy Family History: FH: cancer G8 MOTHER G8 FATHER Family History Family history reviewed. Social History Denies the use of illicit drugs, alcohol, or tobacco use. Allergies: Coded Allergies: NO KNOWN ALLERGIES (Unverified , 01/25/25) Home Meds Reported Medications Furosemide (Lasix) 20 Mg Tb, 1 TAB PO DAILYPRN, #90 TAB 1 Refill 01/26/25 Loratadine (Claritin) 10 Mg Tab, 1 TAB PO DAILY, #30 TAB 5 Refills 01/26/25 Fluticasone Propionate (Nasal) (Flonase Allergy Relief) 50 Mcg/Act Spr, 50 MCG NA DAILY, SPRAY 01/26/25 Tiotropium [place]-Olodaterol (Stiolto Respimat 2.5-2.5 Mcg/Act) 1 Aer Aer, 1 AER IN BID, AER 01/26/25 Patients Own Medication (PATIENTS OWN MEDICATION) ., 25 MG PO DAILY PTS OWN MED-OBTAIN FROM PT AND SEND TO RX DRUG: THALITONE 25MG FREQ:DAILY RX# EXP: DATE DISP: TECH: RPH: 01/26/25 Losartan Potassium (Cozaar) 25 Mg Tab, 2 TAB PO DAILY, #30 TAB 5 Refills 01/26/25 Semaglutide (Rybelsus) 7 Mg Tab, 7 MG PO DAILY, TAB 01/26/25 Atorvastatin Calcium (Lipitor) 40 Mg Tab, 1 TAB PO QPM, #90 TAB 1 Refill 01/26/25 Carvedilol (Coreg) 25 Mg Tab, 1 TAB PO BID, #60 TAB 5 Refills 01/26/25 Metformin Hydrochloride (Metformin Hcl) 1,000 Mg Tab, 1 TAB PO BID, #60 TAB 5 Refills 01/26/25 Home Meds Home medications reviewed. Current Medications Current Medications Medications (Trade) Dose Ordered Sig/Chrissy Route PRN Reason Start Time Stop Time Status Last Admin Diagnostic Test (Pha) (Accu-Chek Comfort Curve T) 1 strip Q4HR 01/26/25 16:00 Cancel Morphine Sulfate 2 mg Q4HPRN PRN IV SEVERE PAIN (7-10 PAIN SCALE) 01/26/25 13:00 01/27/25 07:59 Diagnostic Test (Pha) (Accu-Chek Comfort Curve T) 1 strip IQ4HR 01/26/25 16:00 01/26/25 22:03 DC 01/26/25 19:55 Insulin Human Regular (InsuLIN R) IQ4HR [place] 01/26/25 12:00 01/27/25 08:05 DC 01/26/25 20:04 Dextrose 50 ml UD PRN IV Blood Sugar LESS THAN 60 01/26/25 13:00 Insulin Glargine (Lantus) 30 units HS [place] 01/26/25 15:45 01/26/25 21:36 Pantoprazole Sodium (Protonix Tablet) 40 mg DAILY@0600 PO 01/27/25 06:00 01/27/25 05:18 Diagnostic Test (Pha) (Accu-Chek Comfort Curve T) 1 strip IQ4HR 01/27/25 00:00 01/27/25 08:09 Insulin Human Regular (InsuLIN R) IQ4HR [place] 01/27/25 00:00 01/27/25 08:09 Dextrose 50 ml UD PRN IV Blood Sugar LESS THAN 60 01/26/25 22:15 Insulin Glargine (Lantus) 20 units DAILY@1000 SC 01/27/25 10:45 01/27/25 10:55 Review of Systems Constitutional: No symptom reported Ears, Nose, & Throat: No symptom reported Eyes: No symptom reported Neurological: Dysarthria, MCKEON Pulmonary/Respiratory: SOB Cardiovascular: Chest pain Gastrointestinal: No symptom reported Genitourinary: No symptom reported Musculoskeletal: No symptom reported Skin: No symptom reported Psychiatric: No symptom reported Endocrine: No symptom reported Hemotologic/Lymphatic: No symptom reported Vital Signs Vital Signs Date Time Temp Pulse Resp B/P (MAP) Pulse Ox O2 Delivery O2 Flow Rate FiO2 01/27/25 09:52 97.8 78 18 134/99 (111) 95 97.8 01/27/25 08:00 Room Air* 0 21 Physical Exam General Appearance: Cooperative. Well developed. Morbidly obese. In no acute distress Head Exam: Normal inspection Neck Exam: Normal inspection. Non-tender. Normal alignment Pulmonary/Respiratory: Chest non-tender. Clear bilateral breath sounds Cardiovascular/Chest: Regular rate and rhythm. S1, S2. NSR. No murmurs. No JVD. Peripheral Pulses: 2+ Radial (R). 2+ Radial (L). 2+ Pedal (R). 2+ Pedal (L) Abdominal Exam: Normal bowel sounds. Soft. Nontender. No hepatospenomegaly. No masses Ankle Exam: Negative ankle edema Lower extremities: Negative lower extremity edema Neuro/Mental Status: A&O x4. Coherent Thoughts/Psych: Normal thought pattern. Appropriate mood and affect. Good judgement and insight Appearance: In no acute distress Skin Exam: Normal inspection. Normal color. Warm. Dry Labs/Diagnostic Data Labs Test 01/27/25 10:48 01/26/25 11:55 01/26/25 04:51 01/25/25 18:22 Range/Units POC Glucose 420 *H 70-106 mg/dl SARS-CoV-2 Antigen (Rapid) Negative NEGATIVE Erythrocyte Sedimentation Rate 13 0-20 mm/hr Sodium Level 134 L 136-145 mmol/L Potassium Level 3.5 3.5-5.1 mmol/L Chloride Level 97 L 98-107 mmol/L Carbon Dioxide Level 29 20-31 mmol/L Anion Gap 8 5-15 Blood Urea Nitrogen 16 9-23 mg/dL Creatinine 1.13 0.700-1.30 mg/dL Glomerular Filtration Rate Calc 76 >90 mL/min BUN/Creatinine Ratio 14.2 10.0-20.0 Serum Glucose 470 *H 74-106 mg/dL Hemoglobin A1c > 14.0 H <5.7 % A1C Calcium Level 8.9 8.7-10.4 mg/dL C-Reactive Protein High Sensitivity 0.63 <1.0 mg/dL Triglycerides Level 370 H < 150 mg/dL Cholesterol Level 121 < 200 mg/dL LDL Cholesterol 55 < 100 mg/dL HDL Cholesterol 27 L 40-59 mg/dL Troponin I High Sensitivity 3 L </=54 ng/L Test 01/25/25 14:59 Range/Units White Blood Count 7.8 4.4-10.8 10^3/uL Red Blood Count 5.26 4.5-5.90 10^6/uL Hemoglobin 16.0 13.5-17.5 g/dL Hematocrit 46.8 41.0-53.0 % Mean Corpuscular Volume 89.1 80.0-100.0 fL Mean Corpuscular Hemoglobin 30.5 28.0-32.0 pg Mean Corpuscular Hemoglobin Concent 34.2 32.0-36.0 g/dL Red Cell Distribution Width 14.8 H 11.8-14.3 % Platelet Count 231 140-450 10^3/uL Mean Platelet Volume 8.1 6.9-10.8 fL Neutrophils (%) (Auto) 45.6 37.0-80.0 % Lymphocytes (%) (Auto) 37.0 10.0-50.0 % Monocytes (%) (Auto) 13.0 H 0.0-12.0 % Eosinophils (%) (Auto) 3.5 0.0-7.0 % Basophils (%) (Auto) 0.9 0.0-2.0 % Neutrophils # (Auto) 3.6 1.6-8.6 10 ^3/uL Lymphocytes # (Auto) 2.9 0.4-5.4 10 ^3/uL Monocytes # (Auto) 1.0 0-1.3 10 ^3/uL Eosinophils # (Auto) 0.3 0-0.8 10 ^3/uL Basophils # (Auto) 0.1 0-0.2 10 ^3/uL Nucleated Red Blood Cells 0.1 % D-Dimer, Quantitative < 0.19 0.0-0.49 mg/L FEU Urine RBC 0 - 3 /hpf Urine Squamous Epithelial Cells <5 /hpf Urine Bacteria None Seen /hpf Magnesium Level 2.2 1.6-2.6 mg/dL Total Bilirubin 0.8 0.2-1.0 mg/dL Aspartate Amino Transferase (AST) 27 13-40 U/L Alanine Aminotransferase (ALT) 61 H 7-40 U/L Alkaline Phosphatase 149 H 46-116 U/L Total Protein 7.4 5.7-8.2 g/dL Albumin 4.3 3.2-4.8 g/dL Assessment Chest pain rule out coronary artery disease Hx of multiple PEs 2/2 protein S deficiency (off DAOC hx GI bleed) Insulin-dependent diabetes mellitus, uncontrolled (Hgb A1C >14%) Hypertension Dyslipidemia CORIN on O2 NC HS Morbid obesity Plan/Recommendation (Dr. Parada) Transthoracic echocardiogram revealed LVEF 55% with grade 1 diastolic dysfunction and normal RV function. Scheduled for a Cardiolite stress test to rule out coronary ischemia. Obtain a head CT given complains of MCKEON and dysarthria. In the meantime, continue single antiplatelet therapy, lipid lowering agent, and blood pressure control. Monitor ECG changes closely and notify accordingly. Strongly counseled on dietary changes, exercise, and weight loss. Further orders per clinical course. Thank you for allowing us to participate in this patient's care. Please call if you have any questions or concerns. This medical document was created using an electronic medical record system with voice recognition software and computerized dictation system. Although this document has been carefully reviewed, there might still be some phonetic and typographical errors. Occasional wrong-word or ``sound-alike substitutions may have occurred due to the inherent limitations of voice recognition software. These areas are purely typographical due to imperfections of the software programs and do not reflect any compromise in the patient's medical care. Please read the chart carefully and recognize, using context, where these substitutions have occurred. Plan discussed with: Patient, Other [place] Physical activity limitations: NA Date of Service: Jan 27, 2025 Billing Provider: OSBALDO BOURGEOIS Cardiology Common Codes: [id number] INP/OBS CARE (High) OSBALDO BOURGEOIS Jan 27, 2025 11:38
--- NOTE | 2025-01-27 13:13 | DVH ---
CT HEAD WITHOUT CONTRAST Indication: MCKEON, dysarthria EXAM DATE: 01/27/2025 11:49 AM COMPARISON: None TECHNIQUE: CT of the head without intravenous contrast. RADIATION DOSE: CTDIvol: 66.04 mGy, DLP: 66.04 mGy*cm FINDINGS: There is no intracranial hemorrhage. There is no extra-axial fluid, mass, mass effect or midline shif t. The ventricles are midline and normal in size. Basilar cisterns are patent. Emerson-white differentia tion is maintained. Mild global cerebral volume loss. Mastoids are well pneumatized. Mucosal thickening of the ethmoids. Mucosal thickening right maxilla ry sinus. Imaged portion of the orbits are unremarkable. IMPRESSION: No intracranial hemorrhage or mass effect. Mild global cerebral volume loss. Paranasal sinus disease.
[2025-01-27] MEDS: ACETAMINOPHEN 325 MG TAB PO PRN (13:34)
[2025-01-27] MEDS: HYDROCORTISONE ACET 25 MG RECTAL SUPP PR ONE (23:37)
[2025-01-28] VITALS (8 sets, daily range): BP systolic 104–148; BP diastolic 78–94; PULSE 74–83; RESP 16–20; TEMP 97.7–98.8; O2SAT 93–98
[2025-01-28] MEDS: REGADENOSON 0.4 MG/5 ML SYRG IV ONE ×2 (08:59→09:03)
[2025-01-28] MEDS ORDERED: DEXTROSE (50%) 50ML SYRG IV PRN (13:15)
--- NOTE | 2025-01-28 13:59 | DVHSR ---
APPROVED REPORT Exam: Nuclear Stress Test BMI: 0 Stress Test Details HR Max Heart Rate (APMHR): 163.266695 bpm Target HR (85% APMHR): 138.506514 bpm BP ECG Stress ECG Conclusion lvef 56% inferior wall ischemia [facility] study NM EXAM: Myocardial Perfusion REST/STRESS Imaging Protocol: Rest Tc-99m/Stress Tc-99m 2 days Resting Data Rest SPECT myocardial perfusion imaging was performed in supine position 60 minutes following the int ravenous injection of 15.6 mCi of Tc-99m Sestamibi. Time of rest injection: 13:45 Date: 01/27/2025 Time of rest imagin:45 Date: 01/27/2025 Administration Route: IV Administration Site: Right Arm Pharmacologic Stress Pharmacologic stress test was performed by injecting Regadenoson 0.4 mg IV push followed by the intra venous injection of 27.2 mCi of Tc-99m Sestamibi. Time of stress injection: 09:10 Date: 01/28/2025 Time of stress imagin:10 Date: 01/28/2025 Administration Route: IV Administration Site: Right Arm Gated Stress SPECT was performed 60 minutes after stress injection. The images were gated to evaluate regional wall motion and calculate left ventricular ejection fracti on. Stress only was performed in the Supine position. Comments TWO DAY STUDY Nuclear Conclusion Nuclear Findings: positive for ischemia lvef 56% inferior wall ischemia [facility] study
[2025-01-28] MEDS: InsuLIN REG 1unit/0.01ml Soln (100units/ml) IV ONE ×2 (14:12→17:12)
--- NOTE | 2025-01-28 14:23 | DVHPN2 ---
Subjective Patient continues to have generalized body aches. Continues to report having some chest pressure. Reviewed: Care Plan, H&P, Labs, Medications Changes from previous H/P or p: No Changes General: Per HPI Objective Vitals Vital Signs Date Time Temp Pulse Resp B/P (MAP) Pulse Ox O2 Delivery O2 Flow Rate FiO2 01/28/25 13:50 80 18 147/87 01/28/25 13:00 98.0 93 98.0 01/28/25 08:10 Nasal Cannula* 2 28 Intake/Output Intake and Output 01/28/25 07:00 Intake Total 1350 ml Balance 1350 ml Intake Oral 1350 ml # Voids 6 # Bowel Movements 2 General Appearance: Alert, Oriented X3, Cooperative, mild distress HEENT: Atraumatic, PERRLA Lungs: Clear to auscultation, Normal air movement Cardiovascular: Normal S1, Normal S2 Abdomen: Normal bowel sounds, Soft, No tenderness, No hepatospenomegaly, No masses Musculoskeletal: Normal sensory function, Normal motor function Neuro: Normal tone, Sensation intact, Cranial nerves 3-12 NL Skin: Dry, Intact Psych/Mental Status: Mental status NL, Mood NL Medications Current Medications Medications Dose Ordered Sig/Chrissy Route Start Time Stop Time Status Last Admin Dose Admin Aspirin 81 mg DAILY PO 01/26/25 10:00 01/28/25 09:47 81 MG Furosemide 20 mg DAILY PO 01/26/25 10:00 01/28/25 09:47 20 MG Gabapentin 600 mg TID PO 01/25/25 22:00 01/28/25 13:48 600 MG Atorvastatin Calcium 80 mg HS PO 01/25/25 22:00 01/27/25 21:54 80 MG Carvedilol 25 mg Q12HR PO 01/25/25 22:00 01/28/25 09:46 25 MG Ondansetron HCl 4 mg Q4HP PRN IV 01/25/25 19:45 01/26/25 00:15 4 MG Nitroglycerin 0.4 mg Q5MINP PRN SL 01/25/25 19:45 Morphine Sulfate 2 mg Q30M PRN IV 01/25/25 19:45 01/27/25 03:12 2 MG Diagnostic Test (Pha) 1 strip Q4HR 01/26/25 16:00 Cancel Morphine Sulfate 2 mg Q4HPRN PRN IV 01/26/25 13:00 01/28/25 13:50 2 MG Dextrose 50 ml UD PRN IV 01/26/25 13:00 Pantoprazole Sodium 40 mg DAILY@0600 PO 01/27/25 06:00 01/28/25 05:23 40 MG Diagnostic Test (Pha) 1 strip IQ4HR 01/27/25 00:00 01/28/25 11:48 1 STRIP Dextrose 50 ml UD PRN IV 01/26/25 22:15 Insulin Glargine 20 units DAILY@1000 SC 01/27/25 10:45 01/28/25 09:56 20 UNITS Acetaminophen 650 mg Q6HP PRN PO 01/27/25 13:30 01/27/25 13:34 650 MG Insulin Glargine 45 units HS SC 01/28/25 22:00 Diagnostic Test (Pha) 1 strip IQ4HR 01/28/25 16:00 Insulin Human Regular IQ4HR [place] 01/28/25 16:00 Dextrose 50 ml UD PRN IV 01/28/25 13:15 Laboratory Results Laboratory Tests 01/25/25 14:59 01/26/25 04:51 Labs and/or images reviewed: Labs reviewed by me, Image(s) reviewed by me Assessment/Plan Assessment/Plan Impression: -uncontrolled diabetes mellitus -chest pain, ACS ruled out -morbid obesity -primary hypertension -dyslipidemia Plan: Events: Head CT negative. Cardiac stress test positive for inferior wall ischemia. Blood sugars uncontrolled. -echocardiogram within normal limits -troponin negative x3 -regular insulin IV push 5 units. Continue aggressive scale. Increase Lantus to 45 units q.h.s., continue Lantus 20 daily. -further course of care per Cardiology recommendations. Total time spent with patient discussing and formulating plan of care: 35 minutes. This medical document was created using an electronic medical record system with [employer] dictation system. Although this document has been carefully reviewed, there may still be some phonetic and typographical errors. These areas are purely typographical due to imperfections of the software programs, and do not reflect any compromise in the patient's medical care. Plan discussed with: Patient, Other (RN) My Orders Orders - JERMAN SILVA NP Procedure Category Date Status Time Insulin Lantus PHA 01/28/25 In Process (Glargine) (Lantus) 22:00 Glucose Blood PHA 01/28/25 In Process (Accu-Chek Comfort 16:00 Insulin R (Human) PHA 01/28/25 In Process (Insulin R) 16:00 Dextrose 50% Syringe PHA 01/28/25 In Process 13:15 Date of Service: Jan 28, 2025 Billing Provider: JERMAN SILVA NP Common Visit Codes: [id number] INP/OBS CARE(HIGH) JERMAN SILVA NP Jan 28, 2025 14:23
[2025-01-28] MEDS: ACCU-CHEK COMFORT CURVE STRIP VI SCH (15:51)
[2025-01-28] MEDS: InsuLIN REG 1unit/0.01ml Soln (100units/ml) SC SCH (15:55)
[2025-01-28] MEDS: SODIUM CHLORIDE 0.9% 1,000 ML IV SCH (17:12)
--- NOTE | 2025-01-28 17:35 | DVHPN2 ---
Consult Progress Note Subjective Other Systems: The patient denies any cardiac symptoms at time of assessment. Objective vital signs Vital Sign Date Time Temp Pulse Resp B/P (MAP) Pulse Ox O2 Delivery O2 Flow Rate FiO2 01/28/25 17:07 98.2 76 20 129/81 (97) 97 98.2 01/28/25 08:10 Nasal Cannula* 2 28 Total Intake and Output 01/27/25 01/27/25 01/28/25 15:00 23:00 07:00 Intake Total 600 ml 300 ml 450 ml Balance 600 ml 300 ml 450 ml medications Current Medications Medications Dose Ordered Sig/Chrissy Route Start Time Stop Time Status Last Admin Dose Admin Aspirin 81 mg DAILY PO 01/26/25 10:00 01/28/25 09:47 81 MG Furosemide 20 mg DAILY PO 01/26/25 10:00 01/28/25 09:47 20 MG Gabapentin 600 mg TID PO 01/25/25 22:00 01/28/25 13:48 600 MG Atorvastatin Calcium 80 mg HS PO 01/25/25 22:00 01/27/25 21:54 80 MG Carvedilol 25 mg Q12HR PO 01/25/25 22:00 01/28/25 09:46 25 MG Ondansetron HCl 4 mg Q4HP PRN IV 01/25/25 19:45 01/26/25 00:15 4 MG Nitroglycerin 0.4 mg Q5MINP PRN SL 01/25/25 19:45 Morphine Sulfate 2 mg Q30M PRN IV 01/25/25 19:45 01/27/25 03:12 2 MG Diagnostic Test (Pha) 1 strip Q4HR 01/26/25 16:00 Cancel Morphine Sulfate 2 mg Q4HPRN PRN IV 01/26/25 13:00 01/28/25 13:50 2 MG Dextrose 50 ml UD PRN IV 01/26/25 13:00 Pantoprazole Sodium 40 mg DAILY@0600 PO 01/27/25 06:00 01/28/25 05:23 40 MG Diagnostic Test (Pha) 1 strip IQ4HR 01/27/25 00:00 01/28/25 11:48 1 STRIP Dextrose 50 ml UD PRN IV 01/26/25 22:15 Insulin Glargine 20 units DAILY@1000 SC 01/27/25 10:45 01/28/25 09:56 20 UNITS Acetaminophen 650 mg Q6HP PRN PO 01/27/25 13:30 01/27/25 13:34 650 MG Insulin Glargine 45 units HS SC 01/28/25 22:00 Diagnostic Test (Pha) 1 strip IQ4HR 01/28/25 16:00 01/28/25 15:51 1 STRIP Insulin Human Regular IQ4HR [place] 01/28/25 16:00 01/28/25 15:55 20 UNITS Dextrose 50 ml UD PRN IV 01/28/25 13:15 Sodium Chloride 1,000 ml @ 100 mls/hr Q10H IV 01/28/25 16:45 01/28/25 17:12 100 MLS/HR Examination: GENERAL:Normal, LUNGS:Normal, CVS:Normal, NEURO:Normal laboratory and microbiology Laboratory Tests 01/26/25 04:51 01/25/25 14:59 Test 01/26/25 04:51 Range/Units Serum Glucose 470 *H 74-106 mg/dL Problem List/Assessment/Plan Problem List/Assessment/Plan Chest pain rule out coronary artery disease Hx of multiple PEs 2/2 protein S deficiency (off DAOC hx GI bleed) Insulin-dependent diabetes mellitus, uncontrolled (Hgb A1C >14%) Hypertension Dyslipidemia CORIN on O2 NC HS Morbid obesity Plan/Recommendation (Dr. Parada) Transthoracic echocardiogram revealed LVEF 55% with grade 1 diastolic dysfunction and normal RV function. The patient underwent a nuclear stress test in which findings were positive for ischemia. Given these results, the patient may benefit from coronary angiogram with left heart catheterization. The procedure was discussed with the patient in full detail including risks and benefits. Risks include but are not limited to bleeding, contrast-induced nephropathy, coronary dissection, stroke, and even . The patient understands and is agreeable to undergo the procedure. We will schedule the patient at soonest availability on 01/29/2025. In the meantime, continue single antiplatelet therapy, lipid lowering agent, and blood pressure control. Monitor ECG changes closely and notify accordingly. Strongly counseled on dietary changes, exercise, and weight loss. Thank you for allowing us to participate in this patient's care. Please call if you have any questions or concerns. This medical document was created using an electronic medical record system with voice recognition software and computerized dictation system. Although this document has been carefully reviewed, there might still be some phonetic and typographical errors. Occasional wrong-word or ``sound-alike substitutions may have occurred due to the inherent limitations of voice recognition software. These areas are purely typographical due to imperfections of the software programs and do not reflect any compromise in the patient's medical care. Please read the chart carefully and recognize, using context, where these substitutions have occurred. Plan discussed with: Patient Date of Service: Jan 28, 2025 Billing Provider: JURGEN DOTSON Common Visit Codes: [id number] INP/OBS CARE(HIGH) JURGEN DOTSON Jan 28, 2025 17:35
[2025-01-28 18:55] LABS: INR 0.97 (0.9-1.15); Partial Thromboplastin Time 24.3 SEC (24.5-34.5); Prothrombin Time 10.3 sec (9.3-11.8)
[2025-01-28] MEDS: INSULIN LANTUS (GLARGINE) 1 /0.01ml (100units/ml) SC SCH (21:53)
[2025-01-29] VITALS (14 sets, daily range): BP systolic 95–144; BP diastolic 60–98; PULSE 70–85; RESP 14–20; TEMP 97.6–98.5; O2SAT 92–99
[2025-01-29 00:51] LABS: Urine Protein, UAD Negative (Negative)
[2025-01-29 01:37] LABS: Amphetamine Screen, Urine Neg (NEGATIVE); Barbiturate Scree,Urine Neg (NEGATIVE); Benzodiazephine Screen, Urine Neg (NEGATIVE); Cocaine Screen, Urine Neg (NEGATIVE); Opiate Scree,Urine Neg (NEGATIVE); Phencyclidine Screen, Urine Neg (NEGATIVE)
[2025-01-29 01:38] LABS: Cannabinoid Screen, Urine Neg (NEGATIVE)
[2025-01-29 06:18] LABS: Hematocrit 46.3 % (41.0-53.0); Hemoglobin 16.2 g/dL (13.5-17.5); Mean Corpuscular Hemoglobin 31.1 pg (28.0-32.0); Mean Corpuscular Volume 88.9 fL (80.0-100.0); Nucleated Red Blood Cells % 0.2 %
[2025-01-29 06:32] LABS: INR 0.97 (0.9-1.15); Partial Thromboplastin Time 24.5 SEC (24.5-34.5); Prothrombin Time 10.3 sec (9.3-11.8)
[2025-01-29 06:34] LABS: Anion Gap 7 (5-15); Chloride 101 mmol/L (98-107); Potassium 3.9 mmol/L (3.5-5.1); Sodium 139 mmol/L (136-145)
[2025-01-29 06:40] LABS: BUN/Creatinine Ratio 13.3 (10.0-20.0); Blood Urea Nitrogen 11 mg/dL (9-23)
[2025-01-29 06:43] LABS: Calcium 8.7 mg/dL (8.7-10.4); Carbon Dioxide 31 mmol/L (20-31); Glucose 288 mg/dL (74-106)
--- NOTE | 2025-01-29 10:16 | DVHPN2 ---
Subjective Patient continues to have generalized body aches. Continues to report having some chest pressure. Reviewed: Care Plan, H&P, Labs, Medications Changes from previous H/P or p: No Changes General: Per HPI Objective Vitals Vital Signs Date Time Temp Pulse Resp B/P (MAP) Pulse Ox O2 Delivery O2 Flow Rate FiO2 01/29/25 09:55 79 122/76 01/29/25 08:23 98.0 20 99 98.0 01/29/25 08:02 Nasal Cannula* 2 28 Intake/Output Intake and Output 01/29/25 07:00 Intake Total 1710 ml Output Total 2450 ml Balance -740 ml Intake Oral 760 ml IV Total 950 ml Output Urine Total 2450 ml # Voids 5 General Appearance: Alert, Oriented X3, Cooperative, mild distress HEENT: Atraumatic, PERRLA Lungs: Clear to auscultation, Normal air movement Cardiovascular: Normal S1, Normal S2 Abdomen: Normal bowel sounds, Soft, No tenderness, No hepatospenomegaly, No masses Musculoskeletal: Normal sensory function, Normal motor function Neuro: Normal tone, Sensation intact, Cranial nerves 3-12 NL Skin: Dry, Intact Psych/Mental Status: Mental status NL, Mood NL Medications Current Medications Medications Dose Ordered Sig/Chrissy Route Start Time Stop Time Status Last Admin Dose Admin Aspirin 81 mg DAILY PO 01/26/25 10:00 01/29/25 09:54 81 MG Furosemide 20 mg DAILY PO 01/26/25 10:00 01/28/25 09:47 20 MG Gabapentin 600 mg TID PO 01/25/25 22:00 01/29/25 06:36 600 MG Atorvastatin Calcium 80 mg HS PO 01/25/25 22:00 01/28/25 21:58 80 MG Carvedilol 25 mg Q12HR PO 01/25/25 22:00 01/29/25 09:55 25 MG Ondansetron HCl 4 mg Q4HP PRN IV 01/25/25 19:45 01/26/25 00:15 4 MG Nitroglycerin 0.4 mg Q5MINP PRN SL 01/25/25 19:45 Morphine Sulfate 2 mg Q30M PRN IV 01/25/25 19:45 01/27/25 03:12 2 MG Diagnostic Test (Pha) 1 strip Q4HR 01/26/25 16:00 Cancel Morphine Sulfate 2 mg Q4HPRN PRN IV 01/26/25 13:00 01/29/25 06:42 2 MG Dextrose 50 ml UD PRN IV 01/26/25 13:00 Cancel Pantoprazole Sodium 40 mg DAILY@0600 PO 01/27/25 06:00 01/29/25 06:36 40 MG Dextrose 50 ml UD PRN IV 01/26/25 22:15 Cancel Acetaminophen 650 mg Q6HP PRN PO 01/27/25 13:30 01/27/25 13:34 650 MG Insulin Glargine 45 units HS SC 01/28/25 22:00 01/28/25 21:53 45 UNITS Diagnostic Test (Pha) 1 strip IQ4HR 01/28/25 16:00 01/29/25 07:32 1 STRIP Insulin Human Regular IQ4HR SC 01/28/25 16:00 01/29/25 07:35 12 UNITS Dextrose 50 ml UD PRN IV 01/28/25 13:15 Sodium Chloride 1,000 ml @ 100 mls/hr Q10H IV 01/28/25 16:45 01/29/25 02:07 100 MLS/HR Insulin Glargine 30 units DAILY@1000 SC 01/30/25 10:00 UNV Laboratory Results Laboratory Tests 01/29/25 06:01 Chemistry Test 01/29/25 06:01 Calcium Level 8.7 mg/dL (8.7-10.4) Coagulation Test 01/28/25 18:20 01/29/25 06:01 Prothrombin Time 10.3 sec (9.3-11.8) 10.3 sec (9.3-11.8) Prothrombin Time INR 0.97 (0.9-1.15) 0.97 (0.9-1.15) Activated Partial Thromboplast Time 24.3 SEC (24.5-34.5) L 24.5 SEC (24.5-34.5) Urinalysis Test 01/29/25 00:27 Urine Color Light-yellow (Yellow) Urine Clarity Clear (Clear) Urine pH 6.5 (5.0-9.0) Urine Specific [place] 1.025 (1.001-1.035) Urine Protein Negative (Negative) Urine Ketones Negative (Negative) Urine Blood Negative /uL (Negative) Urine Nitrite Negative (Negative) Urine Bilirubin Negative (Negative) Urine Urobilinogen Normal mg/dL (Negative) Urine Leukocyte Esterase Negative /uL (Negative) Urine RBC <1 /hpf (0 - 3) Urine Microscopic WBC < 1 /HPF (0-3) Urine Squamous Epithelial Cells Few /hpf (<5) Urine Bacteria None seen /hpf (None Seen) Urine Glucose 4+ mg/dL (Normal) H Labs and/or images reviewed: Labs reviewed by me, Image(s) reviewed by me Assessment/Plan Assessment/Plan Impression: -uncontrolled diabetes mellitus -chest pain, ACS ruled out -morbid obesity -primary hypertension -dyslipidemia -acute hypoxic respiratory failure -probable obstructive sleep apnea Plan: Events: Plans for left heart catheterization today. Blood sugars are improving, still remain uncontrolled. We will adjust Lantus. -cardiology consultation: Plans for left heart catheterization today. Continue ACS protocol -Lifestyle modification education: Discussed with the patient the need to lose weight, stick to consistent carbohydrate diet, as well as being compliant with checking his blood sugars and taking his medications. -regular insulin IV push 5 units. Continue aggressive scale. Increase Lantus to 45 units q.h.s., continue Lantus 20 daily. -repeat labs in a.m. Total time spent with patient discussing and formulating plan of care: 35 minutes. This medical document was created using an electronic medical record system with [employer] dictation system. Although this document has been carefully reviewed, there may still be some phonetic and typographical errors. These areas are purely typographical due to imperfections of the software programs, and do not reflect any compromise in the patient's medical care. Plan discussed with: Patient, Other (RN) My Orders Orders - JERMAN SILVA [employer] ANALYST Procedure Category Date Status Time Insulin Lantus PHA 01/28/25 In Process (Glargine) (Lantus) 22:00 Glucose Blood PHA 01/28/25 In Process (Accu-Chek Comfort 16:00 Insulin R (Human) PHA 01/28/25 In Process (Insulin R) 16:00 Dextrose 50% Syringe PHA 01/28/25 In Process 13:15 Sodium Chloride 0.9% PHA 01/28/25 In Process 16:45 Insulin Lantus PHA 01/30/25 Logged (Glargine) (Lantus) 10:00 Date of Service: Jan 29, 2025 Billing Provider: JERMAN SILVA NP Common Visit Codes: [id number] INP/OBS CARE(HIGH) JERMAN SILVA NP Jan 29, 2025 10:16
[2025-01-29] MEDS: IODIXANOL 320MG/ML 100ML BTL IV ONE (13:26)
[2025-01-29] MEDS: HEPARIN SODIUM (PORCINE) 5000 UNITS/ML 1ML VIAL ONE (14:56)
[2025-01-29] MEDS: ANGIOMAX 250 MG VIAL IV ONE (14:56)
[2025-01-29] MEDS: VERAPAMIL 2.5MG/ML INJ 2ML VIAL IV ONE (14:57)
[2025-01-29] MEDS: LIDOCAINE 2%HCL (LOCAL ANESTH.) INJ 20ML MDV ONE (14:57)
[2025-01-29] MEDS: MIDAZOLAM HCL 2MG/2ML 2ml VIAL (1mg/ml) ONE ×2 (14:57→15:15)
[2025-01-29] MEDS: fentaNYL CITRATE 100 MCG/2 ML VL ONE ×2 (14:57→15:15)
[2025-01-29] MEDS: SODIUM CHL 0.9% 0 ML ONE (14:57)
--- NOTE | 2025-01-29 16:15 | DVHOP2 ---
Operative Report - 2 Report Details Date: 01/29/25 Preop Diagnosis: CAD Postop Diagnosis: Mild cardiomyopathy Surgeon: Jaylene Parada MD Anesthesiologist: Conscious sedation Anesthesia: Mac, Local Consent: The patient was informed of the risks and benefits of the procedure. These include but are not limited to complications of anesthesia, postoperative infection, incomplete relief of symptoms, recurrence of symptoms, damage to blood vessels, nerves and tendons, deep venous thrombosis, pulmonary embolism and possible need for repeat surgery in the future. Complications: No complications Findings: No significant CAD. Mild cardiomyopathy. Enlarged left ventricle. Indications for Surgery: Chest pain. Name of Procedure Performed Bilateral cine coronary angiography. Left ventriculography. Procedure Details Procedure Details: Prior local anesthesia with 2% lidocaine to the right wrist and full informed consent obtained the patient was prepped and draped in the usual fashion followed by placement of a six Czech sheath into the radial artery through which a multipurpose catheter was used to cannulate both right and left coronary ostia and ventriculography without complications Hemodynamics: Aortic blood pressure was 110/70 end-diastolic pressure was 15. There was no gradient across the aortic valve on pullback. Coronary anatomy: The right coronary artery is a large vessel it is normal in its proximal mid and distal segments. The PDA and posterolateral branches are normal. Left main is large and normal. Left anterior descending is large and normal. The circumflex is large with two marginals free of significant disease. Ventriculography in the PHILLIPS projection shows an EF of approximately 40%. Enlarged LV is noted. Impression normal left ventricular end-diastolic pressure was with mildly decreased left ventricular ejection fraction 40%. No significant CAD. Recommendations: Medical therapy is warranted continue risk factor modifications. Condition Fair Disposition Still a Patient Date of Service: Jan 29, 2025 Billing Provider: JAYLENE PARADA Sr., MD Cardiology Common Codes: [id number] INP/OBS CARE (High) Cardiology Procedure Codes: 74880-OBKG HEART CATH W/INTRA INJ JAYLENE PARADA Sr., MD Jan 29, 2025 16:15
[2025-01-30 01:01] VITALS: BP 136/86; PULSE 70; RESP 19; TEMP 98.1; O2SAT 97
[2025-01-30 05:00] VITALS: BP 135/94; PULSE 69; RESP 20; TEMP 97.9; O2SAT 94
[2025-01-30 08:00] VITALS: PULSE 75; PULSE 77; RESP 20; O2SAT 97
[2025-01-30] MEDS: INSULIN LANTUS (GLARGINE) 1 /0.01ml (100units/ml) SC SCH (08:51)
[2025-01-30 09:00] VITALS: BP 149/90; PULSE 77; RESP 20; TEMP 97.9; O2SAT 97
[2025-01-30 12:30] VITALS: BP 116/55; PULSE 78; RESP 20; TEMP 98.9; O2SAT 94
--- NOTE | 2025-01-30 15:10 | DVHPN2 ---
Reviewed: Care Plan, H&P, Labs, Medications General: Per HPI Objective Vitals Vital Signs Date Time Temp Pulse Resp B/P (MAP) Pulse Ox O2 Delivery O2 Flow Rate FiO2 01/30/25 14:04 78 20 116/55 01/30/25 12:30 98.9 94 98.9 01/30/25 08:00 Nasal Cannula* 2 28 Intake/Output Intake and Output 01/30/25 07:00 Intake Total 1684 ml Output Total 775 ml Balance 909 ml Intake Oral 1034 ml IV Total 650 ml Output Urine Total 775 ml # Voids 2 # Bowel Movements 1 General Appearance: Alert, Oriented X3, Cooperative, mild distress HEENT: Atraumatic, PERRLA Lungs: Clear to auscultation, Normal air movement Cardiovascular: Normal S1, Normal S2 Abdomen: Normal bowel sounds, Soft, No tenderness, No hepatospenomegaly, No masses Musculoskeletal: Normal sensory function, Normal motor function Neuro: Normal tone, Sensation intact, Cranial nerves 3-12 NL Skin: Dry, Intact Psych/Mental Status: Mental status NL, Mood NL Medications Current Medications Medications Dose Ordered Sig/Chrissy Route Start Time Stop Time Status Last Admin Dose Admin Aspirin 81 mg DAILY PO 01/26/25 10:00 01/30/25 08:52 81 MG Furosemide 20 mg DAILY PO 01/26/25 10:00 01/30/25 08:53 20 MG Gabapentin 600 mg TID PO 01/25/25 22:00 01/30/25 14:04 600 MG Atorvastatin Calcium 80 mg HS PO 01/25/25 22:00 01/29/25 22:12 80 MG Carvedilol 25 mg Q12HR PO 01/25/25 22:00 01/30/25 08:53 25 MG Ondansetron HCl 4 mg Q4HP PRN IV 01/25/25 19:45 01/26/25 00:15 4 MG Nitroglycerin 0.4 mg Q5MINP PRN SL 01/25/25 19:45 Morphine Sulfate 2 mg Q30M PRN IV 01/25/25 19:45 01/27/25 03:12 2 MG Diagnostic Test (Pha) 1 strip Q4HR 01/26/25 16:00 Cancel Morphine Sulfate 2 mg Q4HPRN PRN IV 01/26/25 13:00 01/30/25 14:04 2 MG Dextrose 50 ml UD PRN IV 01/26/25 13:00 Cancel Pantoprazole Sodium 40 mg DAILY@0600 PO 01/27/25 06:00 01/30/25 05:04 40 MG Dextrose 50 ml UD PRN IV 01/26/25 22:15 Cancel Acetaminophen 650 mg Q6HP PRN PO 01/27/25 13:30 01/27/25 13:34 650 MG Insulin Glargine 45 units HS SC 01/28/25 22:00 01/29/25 21:59 45 UNITS Diagnostic Test (Pha) 1 strip IQ4HR 01/28/25 16:00 01/30/25 12:33 1 STRIP Insulin Human Regular IQ4HR SC 01/28/25 16:00 01/30/25 12:35 16 UNITS Dextrose 50 ml UD PRN IV 01/28/25 13:15 Sodium Chloride 1,000 ml @ 100 mls/hr Q10H IV 01/28/25 16:45 01/30/25 03:42 100 MLS/HR Insulin Glargine 30 units DAILY@1000 SC 01/30/25 10:00 01/30/25 08:51 30 UNITS Laboratory Results Laboratory Tests 01/29/25 06:01 Urinalysis Test 01/29/25 00:27 Urine Color Light-yellow (Yellow) Urine Clarity Clear (Clear) Urine pH 6.5 (5.0-9.0) Urine Specific [place] 1.025 (1.001-1.035) Urine Protein Negative (Negative) Urine Ketones Negative (Negative) Urine Blood Negative /uL (Negative) Urine Nitrite Negative (Negative) Urine Bilirubin Negative (Negative) Urine Urobilinogen Normal mg/dL (Negative) Urine Leukocyte Esterase Negative /uL (Negative) Urine RBC <1 /hpf (0 - 3) Urine Microscopic WBC < 1 /HPF (0-3) Urine Squamous Epithelial Cells Few /hpf (<5) Urine Bacteria None seen /hpf (None Seen) Urine Glucose 4+ mg/dL (Normal) YONI BARKER MD Jan 30, 2025 15:10
--- NOTE | 2025-01-30 16:19 | DVHDS2 ---
Discharge Summary Date of Admission Jan 25, 2025 at 19:33 Date of Discharge: Jan 30, 2025 Admitting Diagnosis -uncontrolled diabetes mellitus -chest pain, ACS ruled out -morbid obesity -primary hypertension -dyslipidemia -acute hypoxic respiratory failure -probable obstructive sleep apnea Labs/Diagnostic Data: Laboratory Results Test 01/30/25 11:31 01/29/25 06:01 01/29/25 00:27 01/26/25 11:55 POC Glucose 319 mg/dl (70-106) White Blood Count 6.3 10^3/uL (4.4-10.8) Red Blood Count 5.20 10^6/uL (4.5-5.90) Hemoglobin 16.2 g/dL (13.5-17.5) Hematocrit 46.3 % (41.0-53.0) Mean Corpuscular Volume 88.9 fL (80.0-100.0) Mean Corpuscular Hemoglobin 31.1 pg (28.0-32.0) Mean Corpuscular Hemoglobin Concent 35.0 g/dL (32.0-36.0) Red Cell Distribution Width 15.0 % (11.8-14.3) Platelet Count 209 10^3/uL (140-450) Mean Platelet Volume 7.7 fL (6.9-10.8) Neutrophils (%) (Auto) 52.7 % (37.0-80.0) Lymphocytes (%) (Auto) 29.9 % (10.0-50.0) Monocytes (%) (Auto) 12.1 % (0.0-12.0) Eosinophils (%) (Auto) 4.4 % (0.0-7.0) Basophils (%) (Auto) 0.9 % (0.0-2.0) Neutrophils # (Auto) 3.3 10 ^3/uL (1.6-8.6) Lymphocytes # (Auto) 1.9 10 ^3/uL (0.4-5.4) Monocytes # (Auto) 0.8 10 ^3/uL (0-1.3) Eosinophils # (Auto) 0.3 10 ^3/uL (0-0.8) Basophils # (Auto) 0.1 10 ^3/uL (0-0.2) Nucleated Red Blood Cells 0.2 % Prothrombin Time 10.3 sec (9.3-11.8) Prothrombin Time INR 0.97 (0.9-1.15) Activated Partial Thromboplast Time 24.5 SEC (24.5-34.5) Sodium Level 139 mmol/L (136-145) Potassium Level 3.9 mmol/L (3.5-5.1) Chloride Level 101 mmol/L (98-107) Carbon Dioxide Level 31 mmol/L (20-31) Anion Gap 7 (5-15) Blood Urea Nitrogen 11 mg/dL (9-23) Creatinine 0.83 mg/dL (0.700-1.30) Glomerular Filtration Rate Calc 102 mL/min (>90) BUN/Creatinine Ratio 13.3 (10.0-20.0) Serum Glucose 288 mg/dL (74-106) Calcium Level 8.7 mg/dL (8.7-10.4) Urine Color Light-yellow (Yellow) Urine Clarity Clear (Clear) Urine pH 6.5 (5.0-9.0) Urine Specific [place] 1.025 (1.001-1.035) Urine Protein Negative (Negative) Urine Ketones Negative (Negative) Urine Blood Negative /uL (Negative) Urine Nitrite Negative (Negative) Urine Bilirubin Negative (Negative) Urine Urobilinogen Normal mg/dL (Negative) Urine Leukocyte Esterase Negative /uL (Negative) Urine RBC <1 /hpf (0 - 3) Urine Microscopic WBC < 1 /HPF (0-3) Urine Squamous Epithelial Cells Few /hpf (<5) Urine Bacteria None seen /hpf (None Seen) Urine Glucose 4+ mg/dL (Normal) Urine Opiates Screen Neg (NEGATIVE) Urine Fentanyl Screen Neg (NEGATIVE) Urine Barbiturates Screen Neg (NEGATIVE) Urine Phencyclidine Screen Neg (NEGATIVE) Urine Amphetamines Screen Neg (NEGATIVE) Urine Benzodiazepines Screen Neg (NEGATIVE) Urine Cocaine Screen Neg (NEGATIVE) Urine Cannabinoids Screen Neg (NEGATIVE) SARS-CoV-2 Antigen (Rapid) Negative (NEGATIVE) Test 01/26/25 04:51 01/25/25 18:22 01/25/25 14:59 Erythrocyte Sedimentation Rate 13 mm/hr (0-20) Hemoglobin A1c > 14.0 % A1C (<5.7) C-Reactive Protein High Sensitivity 0.63 mg/dL (<1.0) Triglycerides Level 370 mg/dL (< 150) Cholesterol Level 121 mg/dL (< 200) LDL Cholesterol 55 mg/dL (< 100) HDL Cholesterol 27 mg/dL (40-59) Troponin I High Sensitivity 3 ng/L (</=54) D-Dimer, Quantitative < 0.19 mg/L FEU (0.0-0.49) Magnesium Level 2.2 mg/dL (1.6-2.6) Total Bilirubin 0.8 mg/dL (0.2-1.0) Aspartate Amino Transferase (AST) 27 U/L (13-40) Alanine Aminotransferase (ALT) 61 U/L (7-40) Alkaline Phosphatase 149 U/L (46-116) Total Protein 7.4 g/dL (5.7-8.2) Albumin 4.3 g/dL (3.2-4.8) Other Laboratory Tests 01/29/25 06:01 Brief Hx & Hospital Course: This is a 59 years old male come into emergency department of [facility] complain of chest pain. The patient complained of one day history of substernal pressure-like chest pain radiating to his back and associated with shortness for breath. The patient denied any cough or fever. The chest pain about 7/10 intensity . The patient was admitted. The patient's chest pain was workup. Echo was done showed:lvef 55%,grade 1 diastolic dysfunction,normal rv function,left atrium enlarged,no severe valve abnormalities noted. Patient subsequently had cardiac catheterization done yesterday showed: normal left ventricular end-diastolic pressure was with mildly decreased left ventricular ejection fraction 40%. No significant CAD. [facility] [employer] Specialist recommend medical management. The patient also found to have diabetes uncontrolled. Medication adjustment was done. Today the patient did not complained of chest pain . Blood glucose better controlled. I am going to discharge the patient home today. Advised the patient to follow up with primary care physician 1-2 weeks. Follow up with Cardiology per schedule. Activity as tolerated. Diet per home diet. Recommend low-salt low-cholesterol diet. Physical exam: HEENT: Normocephalic atraumatic pupils equal react to light and accommodation. Extraocular muscles intact, conjunctiva pink, oropharynx moist, no thrush, no exudate. Lymphatic: No lymphadenopathy Cardiovascular exam: S1, S2 was heard. No murmurs, rubs, gallops Lung: Clear on auscultation bilaterally, no wheeze, rale, rhonchi. GI: Abdominal soft, nondistended, nontenderness, positive bowel sounds. Extremity: No crepitus, cyanosis, edema. Pedal pulses present bilateral. Full range of motion. Skin: Normal turgor, no rash. Psych: Alert, oriented x3. Neurology: No focal deficits, cranial nerve II to XII grossly intact. This medical document was created using an electronic medical record system with [employer] direct computerized dictation system. Although this document has been carefully reviewed, there may still be some phonetic and typographical errors. These areas are purely typographical due to imperfections of the software programs, and do not reflect any compromise in the patient's medical care. Condition at Discharge: Stable Final Diagnosis/Problems List Mild cardiomyopathy -uncontrolled diabetes mellitus -chest pain, ACS ruled out -morbid obesity -primary hypertension -dyslipidemia -acute hypoxic respiratory failure -probable obstructive sleep apnea Discharge Disposition: Home Discharge Instruct/Medications Diet: Cardiac 2g Na,low cholest Activity: No Restrictions, As Tolerated Follow Up/Referral: PCP 1-2 WEEKS CARDIOLOGY PER SCHEDULE Medications: RESUME HOME MEDS Scheduled Atorvastatin Calcium (Lipitor), 1 TAB PO QPM, (Reported) Carvedilol (Coreg), 1 TAB PO BID, (Reported) Fluticasone Propionate (Nasal) (Flonase Allergy Relief), 50 MCG NA DAILY, (Reported) Furosemide (Lasix), 1 TAB PO DAILYPRN, (Reported) Loratadine (Claritin), 1 TAB PO DAILY, (Reported) Losartan Potassium (Cozaar), 2 TAB PO DAILY, (Reported) Metformin Hydrochloride (Metformin Hcl), 1 TAB PO BID, (Reported) Patients Own Medication (Patients Own Medication), 25 MG PO DAILY, (Reported) Semaglutide (Rybelsus), 7 MG PO DAILY, (Reported) Tiotropium [place]-Olodaterol (Stiolto Respimat 2.5-2.5 Mcg/Act), 1 AER IN BID, (Reported) Discharge Statement: "Patient was advised to return to the ER or call 911 if any headaches, dizziness, shortness of breath, chest pain, abdominal pain, bleeding, fevers, or worsening of medical condition. Patient was counseled about treatment plan, medications, possible side effects, patientverbalized understanding. All questions were answered to the best of my ability. This discharge took greater then 30 minutes in planning, reviewing documentation, counseling the patient, and discussing with other team members." ASSESSMENT ASSESSMENT Assessment Mild cardiomyopathy Date of Service: Jan 30, 2025 Billing Provider: YONI MERCADO MD Common Visit Codes: 86162-PVC/OBS DISCH DAY >30min YONI MERCADO MD Jan 30, 2025 16:18
[2025-01-30 17:09] VITALS: BP 121/60; PULSE 76; RESP 20; TEMP 98.4; O2SAT 93
== END 2025-01-30 17:08 | disposition home or self-care (01) | DRG 192 ==
LOC: ER 14:58 → OVERFLOW 19:33 → TELE-WESTW 01-26 16:27
PROVIDERS: ADMIT Nurse Practitioner Acute Care; ATTEND Nurse Practitioner Acute Care
PROC: B211YZZ Fluoroscopy of Multiple Coronary Arteries using Other Contrast (ICD-10-PCS; principal; 2025-01-29)
PROC: B215YZZ Fluoroscopy of Left Heart using Other Contrast (ICD-10-PCS; 2025-01-29)
DX: I11.0 Hypertensive heart disease with heart failure (principal); J96.01 Acute respiratory failure with hypoxia; Z99.81 Dependence on supplemental oxygen; I50.43 Acute on chronic combined systolic (congestive) and diastolic (congestive) heart failure; D68.59 Other primary thrombophilia; I42.0 Dilated cardiomyopathy; E66.01 Morbid (severe) obesity due to excess calories; E11.40 Type 2 diabetes mellitus with diabetic neuropathy, unspecified; Z20.822 Contact with and (suspected) exposure to COVID-19; G47.33 Obstructive sleep apnea (adult) (pediatric); Z68.38 Body mass index [BMI] 38.0-38.9, adult; E78.5 Hyperlipidemia, unspecified; Z86.711 Personal history of pulmonary embolism; Z79.4 Long term (current) use of insulin; Z79.899 Other long term (current) drug therapy; Z79.84 Long term (current) use of oral hypoglycemic drugs
CPT/HCPCS: 36415; 70450; 71045; 78452; 80048; 80053; 80061; 80307; 81001; 82962; 83036; 83735; 84484; 85025; 85379; 85610; 85652; 85730; 86141; 86850; 86900; 86901; 87426; 93005; 93017; 93306; 93454; 96374; 96375; 99152; G0378; J1815; J1885; J2250; J2405; J2470; Q9967